=== PATIENT | male | born 1930 | race Caucasian/White ===

== ENCOUNTER → 2016-05-16 | Outpatient (CLI) | payer MEDICARE ==
[~2016-05-16] MED LIST: /WARF5TA; ALDA25TA2; CORE6.25; LASI20TA; NIAC500T; THERGRAN; VALS80CA
[2016-05-16 06:47] LABS: INR 2.46
== END ==
LOC: M LAB 06:03
PROVIDERS: ATTEND Physician Assistant
DX: Z51.81 Encounter for therapeutic drug level monitoring (principal); Z79.01 Long term (current) use of anticoagulants; I48.2 Chronic atrial fibrillation

== ENCOUNTER → 2016-06-18 | Outpatient (CLI) | payer MEDICARE ==
[2016-06-18 11:43] LABS: INR 2.29
== END ==
LOC: M LAB 11:11
PROVIDERS: ATTEND Physician Assistant
DX: Z79.01 Long term (current) use of anticoagulants (principal); I48.2 Chronic atrial fibrillation

== ENCOUNTER 2016-07-16 23:37 | Emergency (ER) | payer MEDICARE | END 2016-07-16 23:42 | disposition E | LOC: M ED 23:37 → EDBD 23:37 → M ED 23:42 | DX: I46.9 Cardiac arrest, cause unspecified (principal) ==

== ENCOUNTER → 2016-07-16 | Outpatient (CLI) | payer MEDICARE ==
[2016-07-16 06:59] LABS: MEAN CORPUSCULAR HEMOGLOBIN 32.2 pg (27.0-33.0); MEAN CORPUSCULAR VOLUME 94.9 fl (80.0-96.0); RED CELL DISTRIBUTION WIDTH 13.3 % (11.5-14.5); WHITE BLOOD COUNT 8.2 K/mm3 (4.0-10.0)
[2016-07-16 07:04] LABS: INR 1.37
[2016-07-16 07:16] LABS: ALBUMIN 3.5 GM/DL (3.2-5.2); CALCIUM LEVEL 8.7 MG/DL (8.8-10.2); CREATININE FOR GFR 1.44 MG/DL (0.70-1.30); GLOMERULAR FILTRATION RATE 49.9 (>35); MAGNESIUM LEVEL 2.1 MG/DL (1.8-2.4); POTASSIUM SERUM 4.4 MEQ/L (3.5-5.1)
== END ==
LOC: M LAB 06:11
PROVIDERS: ATTEND Physician Assistant
DX: I50.42 Chronic combined systolic (congestive) and diastolic (congestive) heart failure (principal); I25.5 Ischemic cardiomyopathy; I48.2 Chronic atrial fibrillation